=== PATIENT | male | born 1990 | race Caucasian/White ===

== ENCOUNTER 2021-12-28 22:14 | Emergency (ER) | payer OTHER, SELFPAY ==
--- NOTE | ~2021-12-28 | CT_ITS ---
EXAMINATION: CT abdomen pelvis w con DATE: 12/28/2021 23:37 INDICATION: Epigastric abdominal pain. Constipation. TECHNIQUE: Computed tomography (CT) of the abdomen and pelvis was performed with 100 mL Omnipaque 350 . intravenous contrast. Automated exposure control and iterative reconstruction technique were employ ed. The dose-length product was 250.67 mGy-cm. COMPARISON: None. FINDINGS: The visualized portions of the lung bases demonstrate minimal atelectasis on the left. No p leural effusion. The heart size is normal. No pericardial effusion. The liver is normal. The gallblad lilly is contracted. The spleen, pancreas, adrenal glands, and kidneys are normal. There is no urolithi asis. Stool distends the rectum. There is otherwise a small volume of stool in the colon. The appendi x is normal. There are no pathologically enlarged lymph nodes. There is no free intraperitoneal fluid . There is mild thoracolumbar spondylosis. IMPRESSION: 1. Stool distends the rectum. Reviewed, dictated and finalized at location A.
[2021-12-28 22:20] VITALS: BP 135/85; PULSE 85; RESP 18; TEMP 36.7; O2SAT 99
[2021-12-28 22:23] VITALS: BP 135/85; O2SAT 100
[2021-12-28 22:31] VITALS: BP 125/84; O2SAT 100
[2021-12-28 22:34] LABS: Basophils Percent Auto 0.4 % (0.2-1.2); Eosinophils Absolute Auto 0.3 K/mm3 (0-0.3); Eosinophils Percent Auto 3.6 % (0-4.4); Hematocrit 44.6 % (42.0-52.0); Hemoglobin 14.8 g/dL (14.0-18.0); Immature Granulocyte Absolute 0.01 K/mm3 (0.00-0.031); Immature Granulocyte Percent A 0.1 % (0-0.5); Lymphocytes Absolute Auto 2.54 K/mm3 (0.9-3.2); Lymphocytes Percent Auto 35.5 % (18.3-44.2); Mean Corpuscular HGB Conc 33.2 g/dl (32-36); Mean Corpuscular Hemoglobin 31.4 pg (26-34); Mean Corpuscular Volume 94.7 fl (80-100); Monocytes Absolute Auto 0.8 K/mm3 (0.1-0.6); Monocytes Percent Auto 10.5 % (2.6-8.5); Neutrophils Absolute Auto 3.6 K/mm3 (1.3-6.7); Neutrophils Percent Auto 49.9 % (45.5-73.1); Platelet Count Result 273 k/mm3 (150-375); Red Blood Count 4.71 M/mm3 (4.6-6.20); Red Cell Distribution Width 12.3 % (11.5-14.5); White Blood Count 7.2 K/mm3 (4.5-10.0)
[2021-12-28 22:46] VITALS: BP 115/83; O2SAT 99
--- NOTE | 2021-12-28 23:03 | ED.ABDPAIN ---
HPI - Abdominal Pain General Chief Complaint: Abdominal Pain Stated Complaint: ABD pain Time Seen by Provider: 12/28/21 22:51 Source: patient Mode of arrival: ambulatory Limitations: no limitations History of Present Illness HPI narrative: Patient is a 31 y/o male who presents to the ED with c/o upper abdominal pain. Patient reports he has had intermittent pain in his upper abdomen for the past 3 months. Pain seems to be worse with certain activities, crunching, and occasionally after eating. He has been trying Tylenol and ibuprofen at home without much relief. Patient also reports having recent constipation. Last bowel movement earlier this afternoon, but small and hard. He did try Dulcolax this morning. Patient denies any fever, nausea, vomiting, rectal bleeding, dysuria, hematuria. Related Data Allergies Allergy/AdvReac Type Severity Reaction Status Date / Time No Known Allergies Allergy Verified 12/28/21 22:15 Review of Systems Review of Systems: CONSTITUTIONAL: Denies fever, chills, or sweats. CARDIOVASCULAR: Denies chest pain. RESPIRATORY: Denies dyspnea. GASTROINTESTINAL: Reports upper ABD pain, constipation. Denies rectal bleeding, nausea, vomiting, or diarrhea. GENITOURINARY: Denies dysuria or hematuria. All systems reviewed & are unremarkable except as noted in HPI and below PMFSH Past Medical History Medical History (Updated 12/29/21 @ 00:28 by Mckayla Olsen PA-C) No pertinent past medical history Surgical History Surgical History (Updated 12/28/21 @ 23:19 by Mckayla Olsen PA-C) History of orthopedic surgery Social History Social History (Updated 12/28/21 @ 23:19 by Mckayla Olsen PA-C) Smoking status: Current every day smoker Tobacco type: e-cigarettes/vaping Alcohol intake: current Alcohol use details: 1-2X a year Substance use: current Substance use type: marijuana Exam Narrative: GENERAL: Well appearing, thin, non-toxic, in no acute distress. HEAD: Normocephalic, atraumatic. NECK: Supple. No adenopathy, no masses. RESPIRATORY: Airway patent, respirations nonlabored. Clear to auscultation bilaterally, no rales, rhonchi, wheezing. CARDIOVASCULAR: Regular rate and rhythm without murmurs, rubs, or gallops. Peripheral pulses 2+ and equal bilaterally. ABDOMINAL: Soft, mild tenderness to palpation in upper abdomen/LUQ, nondistended, no hepatosplenomegaly. Mildly hypoactive BS. MUSCULOSKELETAL: Moves all extremities. Strength/ROM intact without gross deformities. SKIN: Warm, dry, normal color. No rashes. NEURO: A&O X3. Speech clear. Cranial nerves II-XII grossly intact. Steady gait. No ataxic movements. PSYCHIATRIC: Appropriate mood and affect. Normal interaction. Course Vital Signs Vital signs: Vital Signs Temperature 98.0 F 12/28/21 22:20 Pulse Rate 85 12/28/21 22:20 Respiratory Rate 18 12/28/21 22:20 Blood Pressure 135/85 12/28/21 22:20 Pulse Oximetry 99 12/28/21 22:20 Oxygen Delivery Room Air 12/28/21 22:20 Temperature 98.0 F 12/28/21 22:20 Pulse Rate 74 12/29/21 01:01 Respiratory Rate 18 12/29/21 01:01 Blood Pressure 115/83 12/28/21 22:46 Pulse Oximetry 98 12/29/21 01:01 Oxygen Delivery Room Air 12/28/21 22:20 MDM - Abdominal Pain MDM Narrative Medical decision making narrative: Patient presented to ED with a several month history of upper abdominal pain, recent constipation. Vital signs stable upon arrival. Patient tried to Dulcolax and Tylenol today without improvement. Laboratory evaluation fairly unremarkable. No leukocytosis or anemia. CMP unremarkable. UA without signs of infection or dehydration. CT scan of abdomen pelvis showing possible enterocolitis. Discussed findings with patient and effective treatments for constipation. Discussed [id number] treatments, as well as high-fiber diet and increasing fluid intake. Patient will be given Dulcolax and MiraLAX prior to discharge. He wa
[2021-12-28 23:07] LABS: Alanine Aminotransferase 18 U/L (6-50); Albumin Level 4.5 g/dL (3.5-5.1); Alkaline Phosphatase 54 U/L (38-126); Anion Gap 8 mmol/L (8-16); Aspartate Amino Transferase 35 U/L (17-59); Bilirubin,Total 0.6 mg/dL (0.2-1.3); Blood Urea Nitrogen 15 mg/dL (9-20); Calcium 8.6 mg/dL (8.4-10.2); Carbon Dioxide 27 mmol/L (22-30); Chloride 104 mmol/L (98-107); Estimated CRCL calculation 96 ml/min; Estimated Glomerular Filt Rate > 60; Glucose 115 mg/dL (65-110); Lipase 285 U/L (23-300); Potassium 4.4 mmol/L (3.4-5.0); Sodium 139 mmol/L (137-145)
[2021-12-28 23:23] LABS: Appearance Urine Clear (Clear); Bilirubin Urine Negative (Negative); Blood Urine Negative (Negative); Color Urine Yellow (Yellow); Glucose Urine UA Negative (Negative); Ketones Urine Negative (Negative); Leukocyte Esterase Ur Negative LEU/UL (Negative); Nitrate Urine Negative (Negative); Protein Urine Negative (Negative); pH Urine 7.5 (5.0-9.0)
[2021-12-28] MEDS: SODIUM CHLORIDE 0.9% IV 1,000 ML 999 ML IV CONT (23:23)
[2021-12-28 23:26] LABS: Add Urine Microscopic? NO
[2021-12-29] MEDS: BISACODYL 5 MG TABLET EC PO (00:53)
[2021-12-29] MEDS: polyethylene glycoL 3350 17 GM POWD.PACK PO (00:53)
[2021-12-29 01:01] VITALS: PULSE 74; RESP 18; O2SAT 98
== END 2021-12-29 01:02 | disposition home or self-care (01) ==
PROVIDERS: Emergency Provider Emergency Medicine
DX: K52.9 Noninfective gastroenteritis and colitis, unspecified (principal); K59.00 Constipation, unspecified; F17.290 Nicotine dependence, other tobacco product, uncomplicated
CPT/HCPCS: 36415; 74177; 80053; 81003; 83690; 85025; 96365; 99284; A9270; J0131; J7030; Q9967

== ENCOUNTER 2023-05-07 19:01 | Emergency (ER) | payer OTHER, SELFPAY ==
[2023-05-07 19:03] VITALS: BP 134/72; PULSE 80; RESP 20; TEMP 36.6; O2SAT 100
--- NOTE | 2023-05-07 20:22 | ED.LOWEXIN ---
HPI - Extremity Injury (Lower) General Chief Complaint: Extremity Injury, Lower Stated Complaint: toe pain Time Seen by Provider: 05/07/23 20:08 Source: patient Limitations: no limitations History of Present Illness HPI Narrative: Patient is a 32-year-old male presents to the emergency department complaining of toe pain. Patient states select take toe has what he believes to be a possible ingrown toenail and he 1 intrahepatic duct the nail couple days ago and has been having pain in the region with a little bit of redness and small amount of discharge also coming from the medial border of the nail of his left big toe the patient is to history of ingrown toenails and has seen Podiatry in the past. Patient has been taking ibuprofen for the pain. Patient denies any precipitating injuries the patient denies fever vomiting and rash. Related Data Allergies Allergy/AdvReac Type Severity Reaction Status Date / Time No Known Allergies Allergy Verified 05/07/23 20:09 Review of Systems Review of Systems: A 10 system review of systems was completed on the patient and is negative except for what is stated in the HPI. Nursing and ancillary documentation was reviewed. [facility] Past Medical History Medical History (Updated 05/07/23 @ 21:19 by Keon Cruz DO) No pertinent past medical history Surgical History Surgical History (Updated 12/28/21 @ 23:19 by Mckayla Olsen PA-C) History of orthopedic surgery Social History Social History (Updated 12/28/21 @ 23:19 by Mckayla Olsen PA-C) Smoking status: Current every day smoker Tobacco type: e-cigarettes/vaping Alcohol intake: current Alcohol use details: 1-2X a year Substance use: current Substance use type: marijuana Comments At time of signature, I have reviewed and agree with nursing past medical, surgical, social and family history unless otherwise noted. Please see the nursing chart for further information. There is no relevant family history pertinent to the presenting complaint. Exam Narrative: CONST: No acute distress. Well nourished. HENMT: Head is normocephalic and atraumatic. Moist mucous membranes. No posterior oropharynx erythema. EYES: No conjunctival icterus. RESP: Able to speak in full sentences. Normal respiratory effort. CARDIO: Regular rate. Regular rhythm. 2+ DP and radial pulses bilaterally. GI: Nondistended. SKIN: No rashes or lesions noted on exposed skin. Small amount of erythema and fluctuance warmth along the medial skin border of the left 1st toe without palpable crepitus, no bony tenderness to palpation throughout the left foot. NEURO: Oriented x3. Moves all extremities. EXTREM/MSK/BACK: No pedal edema. PSYCH: Normal affect. Skin: General skin exam: erythema and fluctuance Course Vital Signs Vital signs: Vital Signs Temperature 97.8 F 05/07/23 19:03 Pulse Rate 80 05/07/23 19:03 Respiratory Rate 20 05/07/23 19:03 Blood Pressure 134/72 05/07/23 19:03 Pulse Oximetry 100 05/07/23 19:03 Oxygen Delivery Room Air 05/07/23 19:03 Temperature 97.8 F 05/07/23 19:03 Pulse Rate 80 05/07/23 19:03 Respiratory Rate 20 05/07/23 19:03 Blood Pressure 134/72 05/07/23 19:03 Pulse Oximetry 100 05/07/23 19:03 Oxygen Delivery Room Air 05/07/23 19:03 Procedures Abscess I/D foot: Date of Incision: 05/07/23 Time of Incision: 20:40 Side (if applicable): left Sedation/analgesia: none Local Anesthetic: lidocaine 1% Amount of anesthesia used (mL): 3 Technique: incised with #11 blade Amount of fluid expressed (mL): 2 Irrigation: Yes Packing used?: none I&D Results: Pus Complications: other (None) Other Procedure Procedure 1: Other Procedure: Ingrown toenail removal of the left 1st medial distal nail, patient was pretreated with 1% lidocaine without epinephrine using a digital block and hemosta
[2023-05-07 21:20] VITALS: BP 123/87; PULSE 80; RESP 19; O2SAT 97
[2023-05-07] MEDS: NEOMYCIN/POLYMYXIN/BACITRACIN OINTMENT 15 GM TUBE 1 APPLIC TOPICAL (21:22)
[2023-05-07] MEDS: ACETAMINOPHEN 500 MG TABLET 1000 MG PO (21:22)
== END 2023-05-07 21:20 | disposition home or self-care (01) ==
PROVIDERS: Emergency Provider Student in an Organized Health Care Education/Training Program
DX: L60.0 Ingrowing nail (principal); L03.032 Cellulitis of left toe; F17.290 Nicotine dependence, other tobacco product, uncomplicated
CPT/HCPCS: 10060; 99283; A9270

== ENCOUNTER 2024-02-14 18:27 | Emergency (ER) | payer OTHER, SELFPAY ==
[2024-02-14] VITALS (12 sets, daily range): BP systolic 123–128; BP diastolic 78–86; PULSE 46–87; RESP 11–20; TEMP 36.2–36.5; O2SAT 98–100
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
--- NOTE | 2024-02-14 18:44 | ECG_ITS ---
Test Date: 2024-02-14 18:45:08 Measurements Intervals [place] Rate: 72 P: 79 [place]: 160 QRS: 68 QRSD: 122 T: 62 QT: 424 QTc: 466 Interpretive Statements SINUS RHYTHM No previous ECG available for comparison Electronically Signed On 02-15-2024 08:30:06 CDT by Walt Romero M.D.
--- NOTE | 2024-02-14 19:17 | PC.NURSE ---
Report received from Tammy MOORE. Assumed care of patient at this time.
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
== END 2024-02-14 21:05 | disposition home or self-care (01) ==
PROVIDERS: Emergency Provider Student in an Organized Health Care Education/Training Program
DX: S06.0X0A Concussion without loss of consciousness, initial encounter (principal); S49.92XA Unspecified injury of left shoulder and upper arm, initial encounter; V19.3XXA Pedal cyclist (driver) (passenger) injured in unspecified nontraffic accident, initial encounter; F17.290 Nicotine dependence, other tobacco product, uncomplicated
CPT/HCPCS: 70450; 72125; 73030; 93005; 99284